=== PATIENT | female | born 1940 | race Caucasian/White ===

== ENCOUNTER 2021-05-31 10:51 | Day surgery (SDC) | payer MEDICARE, BC ==
[~2021-05-31] VITALS: Ht 162.6 cm; Wt 41.4 kg
--- NOTE | 2021-05-31 11:27 | NUR ---
05/31/21 1127 Sujit Gupta CALL LIGHT WITHIN REACH. EYE DROPS AND PLEDGETT AT 1120.
== END 2021-05-31 12:53 | disposition home or self-care (01) ==
LOC: ORSCSDS 10:51
PROVIDERS: Ophthalmology
PROC: 08RJ3JZ Replacement of Right Lens with Synthetic Substitute, Percutaneous Approach (ICD-10-PCS; principal; 2021-05-31 12:30)
DX: H25.11 Age-related nuclear cataract, right eye (principal)
CPT/HCPCS: J2001; J2250; J3301; J7040; V2632